=== PATIENT | female | born 1960 | race Caucasian/White ===

== ENCOUNTER 2017-02-24 10:05 | Emergency (ER) | payer BC ==
[~2017-02-24] VITALS: Ht 188 cm; Wt 92.5 kg
[2017-02-24] MEDS ORDERED: ERYTHROMYC1 APPLICAT RIGHT EYE (11:53)
[2017-02-24] MEDS ORDERED: ACYCLOVIR200 MG PO (11:53)
[2017-02-24 12:34] VITALS: BP 131/78
[2017-02-25 10:16] LABS: LYME DISEASE SEROLOGY SCREEN NEGATIVE (NEGATIVE)
== END 2017-02-24 12:37 | disposition home or self-care (01) ==
LOC: EME 10:05
PROVIDERS: Physician Assistant
DX: G51.0 Bell's palsy (principal); E78.5 Hyperlipidemia, unspecified
CPT/HCPCS: 70450; 71020; 80048; 85027; 86618; 93005; 99281; 99283

== ENCOUNTER 2018-02-19 06:30 | Emergency (ER) | payer BC ==
[~2018-02-19] VITALS: Ht 182.9 cm; Wt 90.3 kg
[~2018-02-19 06:30] MED LIST: ACYCLOVIR200 MG PO; ERYTHROMYC1 APPLICAT RIGHT EYE
[2018-02-19 08:07] LABS: BASOPHIL (%) 0.9 % (0-1); BASOPHIL COUNT 0.1 K/uL (0-0.1); EOSINOPHIL (%) 5.9 % (0-5); EOSINOPHIL COUNT 0.4 K/uL (0-0.3); HEMATOCRIT 34.2 % (36.0-46.0); HEMOGLOBIN 11.7 G/DL (11.9-15.5); IMMATURE GRANULOCYTE (%) 0.4 % (0.0-0.7); LYMPHOCYTE (%) 22.3 % (15-42); LYMPHOCYTE COUNT 1.5 K/uL (1.0-2.8); MCH 31.8 PG (29.0-34.0); MCHC 34.2 G/DL (30.0-36.0); MCV 92.9 FL (83-99); MONOCYTE (%) 7.5 % (3-12); MONOCYTE COUNT 0.5 K/uL (0-0.8); NEUTROPHIL COUNT 4.3 K/uL (1.8-6.4); PLATELET COUNT 182 K/uL (156-360); RBC DIS.WIDTH-CV 12.5 % (11.8-14.6); RBC DIS.WIDTH-SD 42.4 % (39-53); RED BLOOD COUNT 3.68 M/uL (3.80-5.20); WHITE BLOOD COUNT 6.8 K/uL (4.1-10.2)
[2018-02-19 08:38] LABS: CHLORIDE 109 mEq/L (99-109); POTASSIUM 3.8 mEq/L (3.7-5.4); SODIUM 142 mEq/L (136-147)
[2018-02-19 08:40] LABS: GLUCOSE 88 mg/dL (70-99)
[2018-02-19 08:44] LABS: CREATININE 0.7 mg/dL (0.6-1.3); GFR ESTIMATE (CALCULATED) > 59 mL/min/
[2018-02-19 08:45] LABS: UREA NITROGEN (BUN) 20 mg/dL (9-23)
[2018-02-19] MEDS ORDERED: ELIQUIS5 MG PO ×2 (09:01)
[2018-02-19] MEDS ORDERED: XARELTO15 MG PO (09:19)
[2018-02-19 09:45] VITALS: BP 129/85
== END 2018-02-19 09:45 | disposition home or self-care (01) ==
LOC: EME 06:30
PROVIDERS: Emergency Medicine
DX: I82.4Z2 Acute embolism and thrombosis of unspecified deep veins of left distal lower extremity (principal); E78.5 Hyperlipidemia, unspecified; F32.9 Major depressive disorder, single episode, unspecified
CPT/HCPCS: 80048; 85025; 85610; 93971; 99281; 99284